=== PATIENT | male | born 1980 | race Caucasian/White ===

== ENCOUNTER 2022-05-21 18:23 | Emergency (ER) | payer SELFPAY ==
--- NOTE | 2022-05-21 18:24 | PC.NURSE ---
patient decided to leave when informed of wait.
== END 2022-05-21 18:30 | disposition left against medical advice (07) ==
DX: Z53.21 Procedure and treatment not carried out due to patient leaving prior to being seen by health care provider (principal)
CPT/HCPCS: 99199